=== PATIENT | female | born 1980 | race Two or more races ===

== ENCOUNTER 2019-10-29 11:50 | Observation (INO) | payer SELFPAY ==
[~2019-10-29] VITALS: Ht 154.9 cm; Wt 67.1 kg
[2019-10-29] MEDS ORDERED: TERBUTALINE SULFATE 1 MG/ML 1ML VIAL SC ONE (12:58)
[2019-10-29] MEDS ORDERED: TERBUTALINE SULFATE 1 MG/ML 1ML VIAL SC SCH (13:00)
[2019-10-29 13:29] LABS: Basophils # (auto) 0 10 ^3/uL (0-0.2); Eosinophils # (auto) 0.1 10 ^3/uL (0-0.8); Eosinophils % (auto) 1.3 % (0.0-7.0); Hemoglobin 11.3 g/dL (12.2-16.2); Lymphocytes # (auto) 1.2 10 ^3/uL (0.4-5.4); Monocytes # (auto) 0.4 10 ^3/uL (0-1.3); White Blood Cell 6.6 10^3/uL (4.4-10.8)
[2019-10-29 13:30] LABS: Basophils % (auto) 0.3 % (0.0-2.0); Hematocrit 33.8 % (36.0-46.0); Lymphocytes % (auto) 18.1 % (10.0-50.0); Mean Corpuscular Hemoglobin 34.2 pg (28.0-32.0); Mean Corpuscular Hgb Conc. 33.4 g/dL (32.0-36.0); Mean Corpuscular Volume 102.3 fL (80.0-100.0); Monocytes % (auto) 5.4 % (0.0-12.0); Neutrophils # (auto) 4.9 10 ^3/uL (1.6-8.6); Neutrophils % (auto) 74.9 % (37.0-80.0); Nucleated Red Blood Cells % 0.1 %; Platelet Count (auto) 199 10^3/uL (140-450); Red Cell Distribution Width 13.2 % (11.8-14.3)
[2019-10-29 13:47] LABS: INR 1.03 (0.9-1.15); Partial Thromboplastin Time 23.9 sec (23.0-31.2)
[2019-10-29 13:56] LABS: Albumin 2.7 g/dL (3.4-5.0); Calcium 8.8 mg/dL (8.5-10.1); Potassium 3.6 mmol/L (3.5-5.1)
[2019-10-29 14:02] LABS: BUN/Creatinine Ratio 10.3; Bilirubin, Total 1.1 mg/dL (0.2-1.0); Total Protein 7.3 g/dL (6.4-8.2); Uric Acid 5.2 mg/dL (2.6-6.0)
[2019-10-29 14:24] LABS: Urine Bacteria NONE SEEN /hpf (None Seen); Urine Blood Negative /uL (Negative); Urine Specific Gravity 1.012 (1.001-1.035); Urine WBC 9 /hpf (0 - 5)
[2019-10-29 14:56] LABS: Alcohol, Urine < 3.0 mg/dL (0-10); Amphetamine Screen, Urine NEGATIVE (NEGATIVE); Barbiturate Scree,Urine NEGATIVE (NEGATIVE); Benzodiazephine Screen, Urine NEGATIVE (NEGATIVE); Cannabinoid Screen, Urine NEGATIVE (NEGATIVE); Cocaine Screen, Urine NEGATIVE (NEGATIVE); Opiate Scree,Urine NEGATIVE (NEGATIVE); Phencyclidine Screen, Urine NEGATIVE (NEGATIVE)
[2019-10-29] MEDS ORDERED: RHO (D) IMMUNE GLOBULIN 300 MCG INJ IM ONE (15:15)
== END 2019-10-29 15:45 | disposition other institution (70) ==
LOC: LDRP 11:50
PROVIDERS: ADMIT Specialist; ATTEND Specialist
DX: O26.893 Other specified pregnancy related conditions, third trimester (principal); R10.9 Unspecified abdominal pain; Z87.19 Personal history of other diseases of the digestive system; Z3A.31 31 weeks gestation of pregnancy
CPT/HCPCS: 36415; 59025; 76705; 80053; 80307; 81001; 82150; 83036; 83690; 84550; 85025; 85610; 85730; 86850; 86900; 86901; 90384; 96372; G0378; J3105

== ENCOUNTER 2019-10-29 15:49 | Emergency (ER) | payer SELFPAY | END 2019-10-29 16:25 | disposition left against medical advice (07) | LOC: ER 15:49 | DX: R56.1 Post traumatic seizures (principal); Z53.21 Procedure and treatment not carried out due to patient leaving prior to being seen by health care provider ==

== ENCOUNTER 2019-11-03 02:51 | Inpatient (IN) | payer MEDICAID ==
[2019-11-03] VITALS (9 sets, daily range): BP systolic 96–120; BP diastolic 60–67
[~2019-11-03] VITALS: Ht 154.9 cm; Wt 71.7 kg
[2019-11-03] MEDS: LACTATED RINGER'S 1,000 ML IV SCH ×2 (03:00→13:07)
[2019-11-03] MEDS ORDERED: TERBUTALINE SULFATE 1 MG/ML 1ML VIAL SC ONE (03:06)
[2019-11-03] MEDS ORDERED: MAGNESIUM SULFATE 100 ML IV ONE (03:09)
[2019-11-03] MEDS ORDERED: ceFAZolin 1GM/50ML 100 ML IV ONE (03:26)
[2019-11-03] MEDS ORDERED: ceFAZolin 1GM 2 GM in D5W 5% 100 ML IV ONE (03:30)
[2019-11-03] MEDS ORDERED: MAGNESIUM SULFATE 40MG/ML 1,000 ML IV ONE (03:39)
[2019-11-03] MEDS ORDERED: OXYTOCIN 10UNIT/ML 1ML VIAL IV ONE (03:40)
[2019-11-03] MEDS ORDERED: PROPOFOL 10 MG/ML 20 ML IV ONE (03:40)
[2019-11-03] MEDS ORDERED: SUCCINYLCHOLINE CHLORIDE 20 MG/ML 10ML VIAL IV ONE (03:42)
[2019-11-03] MEDS ORDERED: fentaNYL CITRATE 100 MCG/2 ML VL ONE ×2 (03:43→04:39)
[2019-11-03 03:52] LABS: Basophils # (auto) 0 10 ^3/uL (0-0.2); Basophils % (auto) 0.3 % (0.0-2.0); Eosinophils # (auto) 0.1 10 ^3/uL (0-0.8); Eosinophils % (auto) 1.1 % (0.0-7.0); Hematocrit 32.5 % (36.0-46.0); Hemoglobin 10.9 g/dL (12.2-16.2); Lymphocytes # (auto) 1.8 10 ^3/uL (0.4-5.4); Mean Corpuscular Hemoglobin 34.4 pg (28.0-32.0); Mean Corpuscular Hgb Conc. 33.6 g/dL (32.0-36.0); Mean Corpuscular Volume 102.5 fL (80.0-100.0); Monocytes # (auto) 0.4 10 ^3/uL (0-1.3); Monocytes % (auto) 5.5 % (0.0-12.0); Neutrophils # (auto) 5.5 10 ^3/uL (1.6-8.6); Neutrophils % (auto) 70.1 % (37.0-80.0); Nucleated Red Blood Cells % 0.1 %; Platelet Count (auto) 186 10^3/uL (140-450); Red Blood Cells 3.17 10^6/uL (4.0-5.20); Red Cell Distribution Width 13.4 % (11.8-14.3); White Blood Cell 7.9 10^3/uL (4.4-10.8)
[2019-11-03] MEDS ORDERED: ROCURONIUM 10MG/ML 10ML VIAL IV ONE (04:05)
[2019-11-03 04:15] LABS: Albumin 2.7 g/dL (3.4-5.0); BUN/Creatinine Ratio 12.3; Bilirubin, Total 0.6 mg/dL (0.2-1.0); Calcium 8.3 mg/dL (8.5-10.1); Total Protein 7.5 g/dL (6.4-8.2)
[2019-11-03 04:25] LABS: Potassium 2.7 mmol/L (3.5-5.1)
[2019-11-03] MEDS ORDERED: POTASSIUM CHL 20MEQ/100ML 200 ML IV ONE (04:46)
[2019-11-03] MEDS ORDERED: LACTATED RINGER'S 1,000 ML IV SCH (04:59)
[2019-11-03] MEDS ORDERED: GUM (CHEWING) 1 GUM CHEW CHEW ONE (05:00)
[2019-11-03 05:11] LABS: INR 0.95 (0.9-1.15); Partial Thromboplastin Time 23.6 sec (23.0-31.2)
[2019-11-03] MEDS ORDERED: hydrALAZINE HCL 20 MG/ML VL IV PRN (05:15)
[2019-11-03] MEDS ORDERED: ePHEDrine SULFATE 50 MG/ML AMP IV PRN (05:15)
[2019-11-03] MEDS ORDERED: ONDANSETRON HCL 4 MG/2 ML VIAL IV PRN (05:15)
[2019-11-03] MEDS: HYDROmorphone HCL 2 MG/ML VL IV PRN ×4 (05:35→12:07)
[2019-11-03] MEDS ORDERED: POTASSIUM CHL 20MEQ/100ML 100 ML IV ONE (05:45)
[2019-11-03] MEDS ORDERED: CLINDAMYCIN 600MG IV 50 ML IV SCH (06:00)
--- NOTE | 2019-11-03 06:20 | NUR ---
Report received from Juanita contact lens lathe operator Pt taken to room 7b. Vital signs stable. FUndus firm 1 below u small bleeding noted, dressing clean and intact. Plan of care discussed with pt and , will continue to monitor.
[2019-11-03] MEDS: ACETAMINOPHEN IV 1000 MG/100ML (10MG/ML) IV PRN ×2 (06:48→19:20)
--- NOTE | 2019-11-03 10:00 | NUR ---
PERICARE PROVIDED Pad changed, pt cleaned, fundus firm scant bleeding, pt tolerated well. Will continue to monitor.
--- NOTE | 2019-11-03 13:00 | NUR ---
PERICARE PROVIDED Pad changed, pt cleaned, fundus firm scant bleeding, pt tolerated well. Will continue to monitor.
[2019-11-03] MEDS: CLINDAMYCIN 600MG IV 50 ML IV SCH ×2 (13:06→18:34)
--- NOTE | 2019-11-03 14:00 | NUR ---
Breast pump provided Education given, pt verbalized understanding.
[2019-11-03 15:42] LABS: Calcium 7.6 mg/dL (8.5-10.1)
[2019-11-03 15:45] LABS: BUN/Creatinine Ratio 10.6; Bilirubin, Total 0.6 mg/dL (0.2-1.0); Total Protein 5.7 g/dL (6.4-8.2)
--- NOTE | 2019-11-03 16:17 | NUR ---
PERICARE PROVIDED Pad changed, pt cleaned, fundus firm scant bleeding, pt tolerated well. Will continue to monitor.
[2019-11-03] MEDS: MORPHINE SULF INJ 2 MG/ML SYRINGE 1ML IV PRN ×2 (17:54→21:24)
[2019-11-03] MEDS: ONDANSETRON HCL 4 MG/2 ML VIAL IV PRN ×2 (17:54→21:25)
[2019-11-03 19:32] LABS: Urine WBC None Seen /hpf (0 - 5)
[2019-11-03 19:45] LABS: Urine Bacteria NONE SEEN /hpf (None Seen); Urine Blood TRACE /uL (Negative); Urine Specific Gravity 1.003 (1.001-1.035)
[2019-11-03 20:00] LABS: Alcohol, Urine < 3.0 mg/dL (0-10); Barbiturate Scree,Urine NEGATIVE (NEGATIVE); Benzodiazephine Screen, Urine NEGATIVE (NEGATIVE); Cannabinoid Screen, Urine NEGATIVE (NEGATIVE); Cocaine Screen, Urine NEGATIVE (NEGATIVE); Opiate Scree,Urine NEGATIVE (NEGATIVE); Phencyclidine Screen, Urine NEGATIVE (NEGATIVE)
[2019-11-03 20:06] LABS: Amphetamine Screen, Urine NEGATIVE (NEGATIVE)
--- NOTE | 2019-11-03 21:08 | NUR ---
ORDERS RECEIVED BY LOSFE TO LEAVE ALCAZAR IN UNTIL MORNING DUE TO PATIENTS PAIN.
--- NOTE | 2019-11-03 23:29 | NUR ---
Ambulation: Patient OOB with standby assistance by RN to chair. Patient able to void without difficulty. dayna care, Clean gown provided and bed linen changed. Patient ambulated back to bed with steady gait and no distress noted. pt instructed to move legs while in bed.
[2019-11-04] VITALS (7 sets, daily range): BP systolic 96–138; BP diastolic 52–76
[2019-11-04] MEDS: ONDANSETRON HCL 4 MG/2 ML VIAL IV PRN ×2 (00:58→04:47)
[2019-11-04] MEDS: MORPHINE SULF INJ 2 MG/ML SYRINGE 1ML IV PRN ×2 (00:58→04:45)
[2019-11-04] MEDS: CLINDAMYCIN 600MG IV 50 ML IV SCH (00:59)
[2019-11-04] MEDS ORDERED: HYDROcodone-ACET 5/325MG TAB PO PRN (06:30)
[2019-11-04] MEDS: HYDROcodone-ACET 5/325MG TAB PO PRN ×2 (06:53→13:22)
--- NOTE | 2019-11-04 07:00 | NUR ---
PATIENT HAS BREAST PUMP AT BEDSIDE AND INSTRUCTED TO CALL IF SHE GETS ANY BREAAST MILK TO STORE FOR THAT WAS TRANSFERRED TO [facility], [place]
[2019-11-04 07:09] LABS: RPR Non Reactive (Non Reactive)
[2019-11-04 07:27] LABS: Basophils # (auto) 0 10 ^3/uL (0-0.2); Lymphocytes # (auto) 0.8 10 ^3/uL (0.4-5.4); Monocytes # (auto) 0.4 10 ^3/uL (0-1.3); Neutrophils % (auto) 83.2 % (37.0-80.0)
[2019-11-04 07:28] LABS: Basophils % (auto) 0.1 % (0.0-2.0); Eosinophils # (auto) 0 10 ^3/uL (0-0.8); Eosinophils % (auto) 0.6 % (0.0-7.0); Hematocrit 24.6 % (36.0-46.0); Hemoglobin 8.3 g/dL (12.2-16.2); Lymphocytes % (auto) 10.8 % (10.0-50.0); Mean Corpuscular Hgb Conc. 33.9 g/dL (32.0-36.0); Mean Corpuscular Volume 103.3 fL (80.0-100.0); Monocytes % (auto) 5.3 % (0.0-12.0); Neutrophils # (auto) 6.5 10 ^3/uL (1.6-8.6); Platelet Count (auto) 170 10^3/uL (140-450); Red Blood Cells 2.38 10^6/uL (4.0-5.20); Red Cell Distribution Width 13.5 % (11.8-14.3); White Blood Cell 7.8 10^3/uL (4.4-10.8)
[2019-11-04] MEDS: SIMETHICONE 80 MG CHEWABLE TABLET PO SCH ×2 (07:38→12:00)
[2019-11-04 07:50] LABS: BUN/Creatinine Ratio 4.8; Bilirubin, Total 0.6 mg/dL (0.2-1.0); Total Protein 5.7 g/dL (6.4-8.2)
--- NOTE | 2019-11-04 08:41 | NUR ---
Stock catheter dc'd Order to discontinue stock catheter. Stock dc'd with clean technique following deflation of balloon. Patient tolerated well with no complaints of pain. Continue care.
[2019-11-04] MEDS: IBUPROFEN 800 MG TAB PO PRN ×2 (09:39→17:46)
[2019-11-04] MEDS: DOCUSATE SOD 100 MG CAP PO SCH ×2 (09:40→21:46)
--- NOTE | 2019-11-04 10:00 | NUR ---
Ambulation: Patient OOB with standby assistance by RN. Patient ambulated to bathroom with steady gait. Patient able to void without difficulty 150 ml voided . [facility] teaching provided with returned demonstration by patient. Clean gown provided and bed linen changed. Patient ambulated back to bed with steady gait and no distress noted.
[2019-11-04] MEDS ORDERED: SIMETHICONE 80 MG CHEWABLE TABLET PO SCH (12:00)
--- NOTE | 2019-11-04 13:15 | NUR ---
DR. PLUNKETT IN NURSING STATION AND WAS UPDATED ON PATIENT HGB LEVEL OF 8.3 MG/DL . NO NEW ORDERS GIVEN.
[2019-11-04] MEDS ORDERED: SIMETHICONE 80 MG CHEWABLE TABLET PO PRN (13:30)
[2019-11-04] MEDS ORDERED: PREN-96 PO (14:03)
[2019-11-04] MEDS ORDERED: POTA1TAB61 PO (14:03)
[2019-11-04] MEDS ORDERED: FOLI1TAB6 PO (14:03)
[2019-11-04] MEDS ORDERED: FAMO20IN2 IV (14:03)
--- NOTE | 2019-11-04 20:20 | NUR ---
CNM CALLED. PT RECEIVED ONE NORCO AT 182. THERE WAS ONLY ONE LEFT IN [employer]. ORDER RECEIVED TO GIVE ONE TAB NORCO NOW.
--- NOTE | 2019-11-04 22:48 | NUR ---
IV removal IV DC'd with clean technique, catheter fully intact. Pressure dressing applied to site. Patient tolerated well. NOTE:
[2019-11-05] MEDS: HYDROcodone-ACET 5/325MG TAB PO PRN ×4 (00:04→21:57)
[2019-11-05] MEDS: IBUPROFEN 800 MG TAB PO PRN ×3 (02:21→19:00)
[2019-11-05 03:00] VITALS: BP 99/51
--- NOTE | 2019-11-05 06:15 | NUR ---
PT STATES THAT SHE HAS BEEN AT LEAST 20 TIMES. SHE HAS KEPT THIS PRIVATE FROM EXTENDED FAMILY AND FRIENDS IN FEAR OF ANOTHER MISCARRIAGE. PT STATES SHE KNEW SHE WAS HIGH RISK.
[2019-11-05 07:00] VITALS: BP 109/71
[2019-11-05] MEDS: DOCUSATE SOD 100 MG CAP PO SCH ×2 (09:40→21:55)
[2019-11-05 10:31] VITALS: BP 111/61
--- NOTE | 2019-11-05 10:41 | NUR ---
PATIENT HAS BREAST PUMP AT BEDSIDE AND INSTRUCTED TO CALL IF SHE GETS ANY BREAAST MILK TO STORE FOR THAT WAS TRANSFERRED TO [facility]
[2019-11-05 15:06] VITALS: BP 104/64
[2019-11-05 19:06] VITALS: BP 114/72
[2019-11-05 22:38] VITALS: BP 128/79
[2019-11-06] MEDS: IBUPROFEN 800 MG TAB PO PRN (02:31)
[2019-11-06 02:37] VITALS: BP 103/68
[2019-11-06 07:00] VITALS: BP 125/87
[2019-11-06] MEDS: HYDROcodone-ACET 5/325MG TAB PO PRN (07:35)
--- NOTE | 2019-11-06 09:35 | NUR ---
Discharge: Discharge instructions given as ordered. 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 All questions and concerns addressed. Patient verbalized understanding. Medication reconciliation completed and copy given to patient. prescription for norco given. All required/requested vaccines given and copies of vaccinations given to patient. Patient encouraged to prepare to depart unit.
--- NOTE | 2019-11-06 09:46 | NUR ---
Discharge: Patient taken to vehicle via wheelchair with all personal belongings, accompanied by staff and family member. No distress noted at time of departure, no adverse changes in status since initial assessment.
== END 2019-11-06 09:45 | disposition home or self-care (01) | DRG 540 ==
LOC: OBSVTOIN 02:51 → LDRP 02:51
PROVIDERS: ADMIT Specialist; ATTEND Specialist
PROC: 10D00Z0 Extraction of Products of Conception, High, Open Approach (ICD-10-PCS; principal; 2019-11-03 03:43)
DX: O60.14X0 Preterm labor third trimester with preterm delivery third trimester, not applicable or unspecified (principal); O69.1XX0 Labor and delivery complicated by cord around neck, with compression, not applicable or unspecified; O32.1XX0 Maternal care for breech presentation, not applicable or unspecified; O92.29 Other disorders of breast associated with pregnancy and the puerperium; O92.79 Other disorders of lactation; Z37.0 Single live birth; Z3A.31 31 weeks gestation of pregnancy; Z88.0 Allergy status to penicillin; Z88.2 Allergy status to sulfonamides
CPT/HCPCS: 36415; 59025; 74018; 80053; 80307; 81001; 84112; 85025; 85610; 85730; 86592; 86850; 86870; 86900; 86901; 94762; 96360; 96361; 96365; G0378; J0131; J0330; J0690; J2405; J2704; J3480; J3490; J7060

== ENCOUNTER 2020-02-02 21:15 | Emergency (ER) | payer MEDICAID ==
[~2020-02-02] VITALS: Ht 154.9 cm; Wt 64.4 kg
[~2020-02-02 21:15] MED LIST: FAMO20IN2 IV; FOLI1TAB6 PO; POTA1TAB61 PO; PREN-96 PO
[2020-02-02 22:26] LABS: Basophils # (auto) 0.1 10 ^3/uL (0-0.2); Basophils % (auto) 1.1 % (0.0-2.0); Eosinophils # (auto) 0.1 10 ^3/uL (0-0.8); Eosinophils % (auto) 2.2 % (0.0-7.0); Hematocrit 35.2 % (36.0-46.0); Hemoglobin 11.7 g/dL (12.2-16.2); Lymphocytes # (auto) 1.5 10 ^3/uL (0.4-5.4); Lymphocytes % (auto) 22.7 % (10.0-50.0); Mean Corpuscular Hemoglobin 31.7 pg (28.0-32.0); Mean Corpuscular Hgb Conc. 33.2 g/dL (32.0-36.0); Mean Corpuscular Volume 95.4 fL (80.0-100.0); Monocytes # (auto) 0.2 10 ^3/uL (0-1.3); Neutrophils # (auto) 4.6 10 ^3/uL (1.6-8.6); Nucleated Red Blood Cells % 0.1 %; Platelet Count (auto) 263 10^3/uL (140-450); Red Blood Cells 3.69 10^6/uL (4.0-5.20); Red Cell Distribution Width 16.3 % (11.8-14.3); White Blood Cell 6.5 10^3/uL (4.4-10.8)
[2020-02-02 22:48] LABS: INR 1.04 (0.9-1.15); Partial Thromboplastin Time 25.4 sec (23.0-31.2)
[2020-02-02 22:53] LABS: BUN/Creatinine Ratio 9.6; Calcium 8.4 mg/dL (8.5-10.1); Potassium 3.5 mmol/L (3.5-5.1)
[2020-02-02 23:16] LABS: Urine Bacteria NONE SEEN /hpf (None Seen); Urine Blood 2+ /uL (Negative); Urine Specific Gravity 1.005 (1.001-1.035); Urine WBC 2 /hpf (0 - 5)
[2020-02-03 00:19] VITALS: BP 129/83
== END 2020-02-03 00:24 | disposition home or self-care (01) ==
LOC: ER 21:20
DX: N83.202 Unspecified ovarian cyst, left side (principal); N93.9 Abnormal uterine and vaginal bleeding, unspecified; O02.9 Abnormal product of conception, unspecified; Z79.899 Other long term (current) drug therapy; Z88.0 Allergy status to penicillin; Z88.2 Allergy status to sulfonamides
CPT/HCPCS: 36415; 76830; 76856; 80048; 81001; 81025; 84702; 85025; 85610; 85730; 86850; 86900; 86901

== ENCOUNTER 2020-07-31 12:08 | Inpatient (IN) | payer MEDICAID ==
[~2020-07-31] VITALS: Ht 157.5 cm; Wt 66.0 kg
[2020-07-31 12:59] LABS: Basophils # (auto) 0 10 ^3/uL (0-0.2); Basophils % (auto) 0.5 % (0.0-2.0); Eosinophils # (auto) 0.1 10 ^3/uL (0-0.8); Eosinophils % (auto) 0.7 % (0.0-7.0); Hematocrit 38.9 % (36.0-46.0); Hemoglobin 13.5 g/dL (12.2-16.2); Lymphocytes # (auto) 0.9 10 ^3/uL (0.4-5.4); Lymphocytes % (auto) 8.4 % (10.0-50.0); Mean Corpuscular Hemoglobin 31.5 pg (28.0-32.0); Mean Corpuscular Hgb Conc. 34.6 g/dL (32.0-36.0); Mean Corpuscular Volume 91.3 fL (80.0-100.0); Monocytes # (auto) 0.6 10 ^3/uL (0-1.3); Monocytes % (auto) 5.4 % (0.0-12.0); Nucleated Red Blood Cells % 0.1 %; Platelet Count (auto) 311 10^3/uL (140-450); Red Blood Cells 4.27 10^6/uL (4.0-5.20); Red Cell Distribution Width 17.1 % (11.8-14.3); White Blood Cell 10.6 10^3/uL (4.4-10.8)
[2020-07-31 13:15] LABS: Albumin 3.4 g/dL (3.4-5.0); Calcium 9.4 mg/dL (8.5-10.1); Potassium 3.7 mmol/L (3.5-5.1)
[2020-07-31 13:17] LABS: BUN/Creatinine Ratio 17.5; Bilirubin, Total 1.3 mg/dL (0.2-1.0); Total Protein 9.4 g/dL (6.4-8.2)
[2020-07-31] MEDS ORDERED: ACETAMINOPHEN 325 MG TAB PO ONE (14:15)
[2020-07-31 14:29] LABS: Urine Bacteria NONE SEEN /hpf (None Seen); Urine Blood TRACE /uL (Negative); Urine Hyaline Cast MOD /lpf (0 - 2); Urine Mucus MANY (None Seen); Urine WBC 11 /hpf (0 - 5)
[2020-07-31 14:33] LABS: Urine Specific Gravity 1.042 (1.001-1.035)
[2020-07-31] MEDS ORDERED: PROMETHAZINE HCL 25 MG/ML 1ML IV PRN (15:00)
[2020-07-31] MEDS ORDERED: SODIUM CHLORIDE 0.9% 1,000 ML IVB ONE (15:00)
[2020-07-31] MEDS ORDERED: MORPHINE SULF INJ 2 MG/ML SYRINGE 1ML IV ONE (15:00)
[2020-07-31 15:35] LABS: Magnesium 1.8 mg/dL (1.6-2.6)
[2020-07-31 15:36] LABS: Amylase 232 U/L (25-115); Blood Alcohol < 3.0 mg/dL (0-5)
[2020-07-31 16:00] LABS: INR 1.16 (0.9-1.15); Partial Thromboplastin Time 27.5 sec (23.0-31.2)
[2020-07-31] MEDS ORDERED: ONDANSETRON HCL 4 MG/2 ML VIAL IV PRN (17:00)
[2020-07-31] MEDS ORDERED: ACETAMINOPHEN 325 MG TAB PO PRN (17:00)
[2020-07-31] MEDS: D5W/SOD CHLO 0.9% 1,000 ML IV SCH ×2 (17:15→23:13)
[2020-07-31] MEDS ORDERED: LORazepam 2MG/ML-1ML VIAL ONE (17:37)
[2020-07-31] MEDS ORDERED: LORazepam 2MG/ML-1ML VIAL IV ONE ×2 (17:45)
[2020-07-31] MEDS ORDERED: LORazepam 2MG/ML-1ML VIAL IV PRN (18:15)
[2020-07-31] MEDS: MORPHINE SULF INJ 2 MG/ML SYRINGE 1ML IV PRN ×2 (20:38→23:14)
[2020-07-31 22:00] VITALS: BP 152/87
[2020-08-01] VITALS (7 sets, daily range): BP systolic 143–164; BP diastolic 68–95
[2020-08-01] MEDS: HYDROcodone-ACET 5/325MG TAB PO PRN ×4 (02:41→20:33)
[2020-08-01] MEDS: MORPHINE SULF INJ 2 MG/ML SYRINGE 1ML IV PRN ×3 (06:28→17:08)
[2020-08-01] MEDS: D5W/SOD CHLO 0.9% 1,000 ML IV SCH ×3 (06:29→21:18)
[2020-08-01 07:05] LABS: Amylase 124 U/L (25-115); Lipase 743 U/L (73-393)
[2020-08-01 07:43] LABS: Potassium 3.5 mmol/L (3.5-5.1)
[2020-08-01 07:51] LABS: Albumin 2.7 g/dL (3.4-5.0); BUN/Creatinine Ratio 9.8; Bilirubin, Total 0.9 mg/dL (0.2-1.0); Calcium 8.2 mg/dL (8.5-10.1); Total Protein 7.6 g/dL (6.4-8.2)
[2020-08-01] MEDS: PANTOPRAZOLE 40 MG TAB PO SCH (09:10)
[2020-08-01 10:34] LABS: Folate (Folic Acid) > 24.00 ng/mL (5.38-24)
[2020-08-01] MEDS ORDERED: FOLIC ACID 1 MG, MULTIPLE VITAMIN 10 ML, THIAMINE INJ 100 MG in SODIUM CHLORIDE 0.9% 1,... INJ SCH (12:00)
[2020-08-01] MEDS: hydrALAZINE HCL 20 MG/ML VL IV PRN (21:16)
[2020-08-02] MEDS: MORPHINE SULF INJ 2 MG/ML SYRINGE 1ML IV PRN ×2 (00:19→05:45)
[2020-08-02] MEDS: D5W/SOD CHLO 0.9% 1,000 ML IV SCH ×2 (05:46→09:00)
[2020-08-02 05:54] VITALS: BP 162/98
[2020-08-02] MEDS: hydrALAZINE HCL 20 MG/ML VL IV PRN (06:18)
[2020-08-02 08:30] VITALS: BP 140/81
[2020-08-02] MEDS: PANTOPRAZOLE 40 MG TAB PO SCH (09:22)
[2020-08-02] MEDS ORDERED: FOLIC ACID 1 MG, MULTIPLE VITAMIN 10 ML, THIAMINE INJ 100 MG, MAGNESIUM SULF SDV 50% 8 ... INJ SCH ×5 (12:00)
[2020-08-02 12:21] VITALS: BP 147/91
== END 2020-08-02 14:15 | disposition home or self-care (01) | DRG 282 ==
LOC: ER 12:08 → OVERFLOW 18:24 → DOU IN ICU 22:05 → TELE-WESTW 08-01 14:40
PROVIDERS: ADMIT Internal Medicine; ATTEND Internal Medicine
DX: K85.20 Alcohol induced acute pancreatitis without necrosis or infection (principal); J69.0 Pneumonitis due to inhalation of food and vomit; R06.81 Apnea, not elsewhere classified; K76.0 Fatty (change of) liver, not elsewhere classified; G40.401 Other generalized epilepsy and epileptic syndromes, not intractable, with status epilepticus; E87.6 Hypokalemia; F10.239 Alcohol dependence with withdrawal, unspecified; Y90.0 Blood alcohol level of less than 20 mg/100 ml; Z20.822 Contact with and (suspected) exposure to COVID-19; Z83.3 Family history of diabetes mellitus; Z71.41 Alcohol abuse counseling and surveillance of alcoholic; Z88.2 Allergy status to sulfonamides; Z88.0 Allergy status to penicillin; R06.03 Acute respiratory distress
CPT/HCPCS: 36415; 36600; 70450; 70551; 71045; 74176; 80053; 80320; 81001; 82150; 82607; 82746; 82805; 82962; 83690; 83735; 84425; 84443; 84702; 85025; 85610; 85730; 87081; 87426; 95819; 96361; 96374; 96375; 96376; G0378; J2405; J7042

== ENCOUNTER 2022-12-18 23:01 | Emergency (ER) | payer MEDICAID ==
[~2022-12-18] VITALS: Ht 154.9 cm; Wt 59.0 kg
[~2022-12-18 23:01] MED LIST changes: +FOLI-119 PO; -FOLI1TAB6 PO
[2022-12-18 23:35] VITALS: BP 127/87; PULSE 99; RESP 18; O2SAT 97
[2022-12-18] MEDS ORDERED: cefTRIAXone 1GM/50ML D5W 50 ML IV ONE (23:45)
[2022-12-18] MEDS ORDERED: DexAMETHasone SOD PHOS 10MG/1ML VIAL INJ IV ONE (23:45)
[2022-12-19 00:19] LABS: Basophils # (auto) 0.1 10 ^3/uL (0-0.2); Basophils % (auto) 1.4 % (0.0-2.0); Eosinophils # (auto) 0.1 10 ^3/uL (0-0.8); Eosinophils % (auto) 2.5 % (0.0-7.0); Hemoglobin 12.9 g/dL (12.2-16.2); Lymphocytes # (auto) 2.4 10 ^3/uL (0.4-5.4); Lymphocytes % (auto) 54.4 % (10.0-50.0); Mean Corpuscular Hemoglobin 32.7 pg (28.0-32.0); Mean Corpuscular Hgb Conc. 33.1 g/dL (32.0-36.0); Mean Corpuscular Volume 98.7 fL (80.0-100.0); Monocytes # (auto) 0.3 10 ^3/uL (0-1.3); Monocytes % (auto) 6.1 % (0.0-12.0); Neutrophils # (auto) 1.6 10 ^3/uL (1.6-8.6); Neutrophils % (auto) 35.6 % (37.0-80.0); Nucleated Red Blood Cells % 0.1 %; Red Blood Cells 3.95 10^6/uL (4.0-5.20); Red Cell Distribution Width 15.6 % (11.8-14.3); White Blood Cell 4.5 10^3/uL (4.4-10.8)
[2022-12-19 00:35] LABS: Alanine Aminotransferase 35 U/L (7-40); Albumin 4.3 g/dL (3.2-4.8); Alkaline Phosphatase 84 U/L (46-116); Anion Gap 6 (5-15); Aspartate Aminotransferase 58 U/L (13-40); Bilirubin, Total 0.4 mg/dL (0.2-1.0); Calcium 8.9 mg/dL (8.7-10.4); Carbon Dioxide 29 mmol/L (20-30); Chloride 108 mmol/L (98-107); Glucose 136 mg/dL (74-106); Lipase 37 U/L (12-53); Magnesium 1.9 mg/dL (1.6-2.6); Potassium 3.6 mmol/L (3.5-5.1); Sodium 143 mmol/L (136-145); Total Protein 8.3 g/dL (5.7-8.2)
[2022-12-19 00:44] LABS: BUN/Creatinine Ratio 7.1 (10.0-20.0); Blood Urea Nitrogen < 5 mg/dL (9-23)
== END 2022-12-19 04:00 | disposition left against medical advice (07) ==
LOC: ER 23:06
DX: J02.9 Acute pharyngitis, unspecified (principal); R10.2 Pelvic and perineal pain; E11.9 Type 2 diabetes mellitus without complications; Z90.49 Acquired absence of other specified parts of digestive tract
CPT/HCPCS: 36415; 80053; 83690; 83735; 84702; 85025